=== PATIENT | female | born 1995 | race Caucasian/White ===

== ENCOUNTER 2016-12-28 09:16 | Emergency (ER) | payer SELFPAY ==
[2016-12-28 09:56] LABS: Basophils % (Auto) 0.4 % (0.0-1.8); Eosinophils % (Auto) 0.5 % (0.0-4.3); Hematocrit 32.8 % (30.3-42.9); Hemoglobin 10.7 gm/dl (10.1-14.3); Mean Corpuscular HGB Conc 33 % (30-34); Mean Corpuscular Hemoglobin 29 pg (28-32); Mean Corpuscular Volume 89 fl (79-97); Platelet Count 296 K/mm3 (140-440); Red Blood Count 3.67 M/mm3 (3.65-5.03); Red Cell Distribution Width 13.7 % (13.2-15.2); White Blood Count 3.8 K/mm3 (4.5-11.0)
[2016-12-28 10:10] LABS: Alanine Aminotransferase 10 units/L (7-56); Albumin 3.3 g/dL (3.9-5); Albumin/Globulin Ratio 0.8 %; Alkaline Phosphatase 65 units/L (35-129); Anion Gap 16 mmol/L; Blood Urea Nitrogen 20 mg/dL (7-17); Calcium 8.6 mg/dL (8.4-10.2); Carbon Dioxide 22 mmol/L (22-30); Chloride 103.3 mmol/L (98-107); Glucose 127 mg/dL (65-100); Lipase 66 units/L (13-60); Potassium 3.6 mmol/L (3.6-5.0); Sodium 138 mmol/L (137-145); Total Protein 7.6 g/dL (6.3-8.2)
[2016-12-28] MEDS ORDERED: PEPCID PO ONE (10:25)
[2016-12-28] MEDS ORDERED: ZOFRAN ODT ONE (10:33)
[2016-12-28] MEDS: ZOFRAN ODT PO ONE ×2 (10:36→12:45)
[2016-12-28 11:06] LABS: Bacteria,Urine 2+ /HPF (Negative); Bilirubin,Urine NEG (Negative); Blood,Urine SM (Negative); Ketones,Urine NEG (Negative); Leukocyte Esterase,Urine TR (Negative); Mucus,Urine 1+ /HPF; Nitrite,Urine NEG (Negative); Protein,Urine <15 mg/dL mg/dL (Negative); Urobilinogen,Urine < 2.0 mg/dL (<2.0)
--- NOTE | 2016-12-28 11:24 | Emergency Department Report ---
Entered by NIKO GASTON, acting as scribe for CHRISTOPHER LOPEZ PA. Chief Complaint: Abdominal Pain Stated Complaint: ABDOMINAL PAIN Time Seen by Provider: 12/28/16 10:23 - HPI History of Present Illness: 21 y/o female with PMHx of lupus, presents to the ED c/o upper abdominal pain beginning at approximately 07:00 this morning. The abdominal pain is characterized as "gas"-like pressure and 10/10 severity. Associated symptoms of chest pain and nausea, but she denies vomiting and diarrhea. No other complaints. - ROS Review of Systems: ABD: Positive for abdominal pain and nausea, negative for vomiting and diarrhea CARDIAC: positive for chest pain All other systems reviewed and negative - Exam Vital Signs: Vital Signs 12/28/16 09:31 Temperature 98.1 F Pulse Rate 82 Respiratory 22 Rate Blood Pressure 117/75 O2 Sat by Pulse 99 Oximetry Physical Exam: Constitutional: Non toxic appearing, NAD. Cardiovascular: Normal rate and rhythm with normal S1/S2 sounds. Respiratory: No respiratory distress. Lung sounds clear to auscultation bilaterally. Abdomen: Abdomen is non-distended, soft with no tenderness to palpation in all quadrants. MSE screening note: Focused history and physical exam performed. Due to findings the following was ordered: ED Medical Decision Making - Lab Data Result diagrams: 12/28/16 09:37 12/28/16 09:37 - Medical Decision Making Alert and oriented x3. Abdominal protocol was ordered. Patient received Pepcid and Zofran. patient to be seen by fast track provider Patient in no acute distress, stable. ED Disposition for MSE Condition: Stable Instructions: Abdominal Pain (ED) Referrals: PRIMARY CARE, [Primary Care Provider] - 3-5 Days This documentation as recorded by the scribe,NIKO GASTON,accurately reflects the service I personally performed and the decisions made by JOHN sweeney OYINLOLA A, PA.
[2016-12-28 12:37] VITALS: BP 111/73
[2016-12-28] MEDS ORDERED: ZOFRAN IV ONE (12:50)
--- NOTE | 2016-12-28 13:17 | Emergency Department Report ---
ED Abdominal Pain HPI - General Chief Complaint: Abdominal Pain Stated Complaint: ABDOMINAL PAIN Time Seen by Provider: 12/28/16 10:25 Source: patient Mode of arrival: Ambulatory Limitations: No Limitations - History of Present Illness Initial Comments: Patient comes into the ER today with complaints of upper abdominal pain that seemed to start this morning. Patient denies any vomiting but does state that she has been quite nauseous. Patient denies any bowel changes. Patient has not eaten anything today and states that she does not really have much of an appetite. Additional information and patient states that she did have a vaginal delivery 4 months ago. Patient has taken some [id number] medications without any symptomatic relief. MD Complaint: abdominal pain -: days(s) (1), This morning Location: epigastric Severity scale (0 -10): 2 - Related Data Previous Rx's Medication Instructions Recorded Last Taken Type HYDROcodone/APAP 5-325 [[place] 1 each PO Q6HR PRN #15 tablet 12/28/16 Unknown Rx 5/325] Ondansetron [Zofran Odt] 4 mg PO TID PRN #15 tab.rapdis 12/28/16 Unknown Rx Allergies Allergy/AdvReac Type Severity Reaction Status Date / Time No Known Allergies Allergy Verified 12/28/16 10:35 ED Review of Systems ROS: Stated complaint: ABDOMINAL PAIN Other details as noted in HPI Constitutional: denies: chills, fever Eyes: denies: eye pain, eye discharge, vision change ENT: denies: ear pain, throat pain Respiratory: denies: cough, shortness of breath, wheezing Cardiovascular: denies: chest pain, palpitations, dyspnea on exertion, edema, syncope Endocrine: no symptoms reported Gastrointestinal: abdominal pain, nausea. denies: vomiting, diarrhea, constipation Genitourinary: denies: urgency, dysuria, discharge Musculoskeletal: denies: back pain, joint swelling, arthralgia Skin: denies: rash, lesions Neurological: denies: headache, weakness, paresthesias Psychiatric: denies: anxiety, depression Hematological/Lymphatic: denies: easy bleeding, easy bruising ED Past Medical Hx - Past Medical History Previous Medical History?: Yes Hx GERD: Yes Additional medical history: Lupus, Vaginal delivery 08-31-2016 - Surgical History Past Surgical History?: No - Social History Smoking Status: Never Smoker Substance Use Type: Alcohol, Prescribed - Medications Home Medications: Home Medications Medication Instructions Recorded Confirmed Last Taken Type HYDROcodone/APAP 5-325 [[place] 1 each PO Q6HR PRN #15 tablet 12/28/16 Unknown Rx 5/325] Ondansetron [Zofran Odt] 4 mg PO TID PRN #15 tab.rapdis 12/28/16 Unknown Rx ED Physical Exam - General Limitations: No Limitations General appearance: alert, in no apparent distress - Head Head exam: Present: atraumatic, normocephalic - Eye Eye exam: Present: normal appearance - ENT ENT exam: Present: mucous membranes moist - Neck Neck exam: Present: normal inspection - Respiratory Respiratory exam: Present: normal lung sounds bilaterally. Absent: respiratory distress, wheezes, rales, rhonchi, chest wall tenderness, accessory muscle use, decreased breath sounds - Cardiovascular Cardiovascular Exam: Present: regular rate, normal rhythm. Absent: systolic murmur, diastolic murmur, rubs, gallop - GI/Abdominal GI/Abdominal exam: Present: soft, tenderness (right upper quadrant and epigastric), normal bowel sounds. Absent: distended, guarding, rebound, rigid - Extremities Exam Extremities exam: Present: normal inspection, normal capillary refill. Absent: pedal edema - Back Exam Back exam: Present: normal inspection - Neurological Exam Neurological exam: Present: alert, oriented X3, CN II-XII intact - Psychiatric Psychiatric exam: Present: normal affect, normal mood - Skin Skin exam: Present: warm, dry, intact, normal color. Absent: rash ED Course Vital Signs 12/28/16 12/28/16 12/28/16 09:31 12:29 12:33 Temperature 98.1 F 98.1 F Pulse Rate 82 77 Respiratory 22 18 18 Rate Blood Pressure 117/75 Blood Pressure 111/73 [Right] O2 Sat by Pulse 99 100 98 Oximetry ED Medical Decision Making - Lab Data Result diagrams: 12/28/16 09:37 12/28/16 09:37 Lab Results 12/28/16 12/28/16 12/28/16 Range/Units 09:37 09:37 10:36 WBC 3.8 L (4.5-11.0) K/mm3 RBC 3.67 (3.65-5.03) M/mm3 Hgb 10.7 (10.1-14.3) gm/dl Hct 32.8 (30.3-42.9) % MCV 89 (79-97) fl MCH 29 (28-32) pg MCHC 33 (30-34) % RDW 13.7 (13.2-15.2) % Plt Count 296 (140-440) K/mm3 Lymph % (Auto) 45.6 H (13.4-35.0) % [place] % (Auto) 8.3 H (0.0-7.3) % Eos % (Auto) 0.5 (0.0-4.3) % Baso % (Auto) 0.4 (0.0-1.8) % Lymph # 1.8 (1.2-5.4) K/mm3 [place] # 0.3 (0.0-0.8) K/mm3 Eos # 0.0 (0.0-0.4) K/mm3 Baso # 0.0 (0.0-0.1) K/mm3 Seg Neutrophils % 45.2 (40.0-70.0) % Seg Neutrophils # 1.7 L (1.8-7.7) K/mm3 Sodium 138 (137-145) mmol/L Potassium 3.6 (3.6-5.0) mmol/L Chloride 103.3 (98-107) mmol/L Carbon Dioxide 22 (22-30) mmol/L Anion Gap 16 mmol/L BUN 20 H (7-17) mg/dL Creatinine 0.5 L (0.7-1.2) mg/dL Estimated GFR > 60 ml/min BUN/Creatinine Ratio 40.00 % Glucose 127 H (65-100) mg/dL Calcium 8.6 (8.4-10.2) mg/dL Total Bilirubin 0.30 (0.1-1.2) mg/dL AST 28 (5-40) units/L ALT 10 (7-56) units/L Alkaline Phosphatase 65 (35-129) units/L Total Protein 7.6 (6.3-8.2) g/dL Albumin 3.3 L (3.9-5) g/dL Albumin/Globulin Ratio 0.8 % Lipase 66 H (13-60) units/L Urine Color Yellow (Yellow) Urine Turbidity Cloudy (Clear) Urine pH 7.0 (5.0-7.0) Ur Specific [place] 1.020 (1.003-1.030) Urine Protein <15 mg/dl (Negative) mg/dL Urine Glucose (UA) Neg (Negative) mg/dL Urine Ketones Neg (Negative) mg/dL Urine Blood Sm (Negative) Urine Nitrite Neg (Negative) Urine Bilirubin Neg (Negative) Urine Urobilinogen < 2.0 (<2.0) mg/dL Ur Leukocyte Esterase Tr (Negative) Urine WBC (Auto) 4.0 (0.0-6.0) /HPF Urine RBC (Auto) 8.0 (0.0-6.0) /HPF U Epithel Cells (Auto) 37.0 H (0-13.0) /HPF Urine Bacteria (Auto) 2+ (Negative) /HPF Urine Mucus 1+ /HPF - Radiology Data Radiology results: report reviewed Mild gallbladder sludge and few small possible polyp/gallstones. Negative sonographic Justice sign. Gallbladder wall thickness is 2.9 mm., And bile duct is 1.9 mm - Medical Decision Making Patient is nontoxic and hemodynamically stable. Physical exam is concerning for potential gallbladder etiology. Ultrasound of gallbladder ordered and reviewed and discussed results with patient and family in room. Lab results as well as ultrasound results reviewed and discussed with patient in room. Ultrasound does reveal that she has underlying gallbladder problems but is not found to be in acute cholecystitis state. However prescribed patient some medications for symptomatic relief and refer her to surgeons for evaluation of cholecystectomy. Urine test verified by lab that she is not this time despite it not showing up in the records. I have instructed patient to follow a high protein low fat diet over the next few days. Patient is in agreement with treatment plan the patient is stable for discharge. Critical care attestation.: If time is entered above; I have spent that time in minutes in the direct care of this critically ill patient, excluding procedure time. ED Disposition Clinical Impression: Epigastric abdominal pain, Biliary colic, Gallstones Disposition: - TO HOME OR SELFCARE Is pt being admited?: No Does the pt Need Aspirin: No Condition: Stable Instructions: Biliary Colic (ED) Prescriptions: HYDROcodone/APAP 5-325 [[place] 5/325] 1 each PO Q6HR PRN #15 tablet PRN Reason: Pain Ondansetron [Zofran Odt] 4 mg PO TID PRN #15 tab.rapdis PRN Reason: Nausea Referrals: PRIMARY CARE, [Primary Care Provider] - 3-5 Days FABIÁN LOJA MD [Staff Physician] - 3-5 Days Forms: Accompanied Note, Work/School Release Form(ED) Time of Disposition: 15:06
--- NOTE | 2016-12-28 14:26 | Ultrasound Report ---
ULTRASOUND ABDOMEN LIMITED INDICATION: Right upper quadrant and epigastric abdominal pain. COMPARISON: None similar at this institution. FINDINGS: Right upper quadrant ultrasound demonstrates normal hepatic contours and echogenicity, though slight diffuse coarsening possible. No biliary dilatation. Mild gallbladder sludge and few small nonspecific echogenicities near the gallbladder neck, some possibly slightly shadowing. No pericholecystic fluid or positive sonographic Justice's sign. Gallbladder wall thickness is 2.9 mm. Common bile duct is 1.9 mm. Normal imaged pancreas, IVC and abdominal aorta. Nonhydronephrotic, though mildly echogenic right kidney approximately 10.6 x 5.5 x 5.6 cm with cortical thickness of 1.9 cm. CONCLUSION: 1. Mild gallbladder sludge and few small possible polyps/gallstones, as described. 2. Other findings, including slightly coarse liver and possible underlying medical renal disease. Please correlate. Thank you for the opportunity to participate in this patient's care.
== END 2016-12-28 15:15 | disposition home or self-care (01) ==
LOC: ED 09:16
DX: K80.70 Calculus of gallbladder and bile duct without cholecystitis without obstruction (principal); K21.9 Gastro-esophageal reflux disease without esophagitis
CPT/HCPCS: 36415; 76705; 80053; 81001; 81025; 83690; 85025; 99284; Q0162